=== PATIENT | female | born 1985 | race Caucasian/White ===

== ENCOUNTER 2020-10-31 10:34 | Inpatient (IN) | payer OTHER ==
[~2020-10-31] VITALS: Ht 160 cm; Wt 60.5 kg
[2020-10-31] MEDS ORDERED: LORAZEPAM 1MG TABLET PO ONE (11:00)
[2020-10-31] MEDS ORDERED: LEVETIRACETAM 1000MG PREMIX 100 ML IV ONE (11:00)
[2020-10-31 11:17] LABS: HEMATOCRIT. 34.1 % (36.0-48.0); HEMOGLOBIN. 11.3 g/dL (12.0-16.0); MEAN CORPUSCULAR HEMOGLOBIN 26.6 pg (28.0-32.0); MEAN PLATELET VOLUME 8.3 fl (7.4-10.4); PLATELET 252 x1000/uL (130-400); RED BLOOD CELL COUNT 4.26 mill/uL (4.2-5.4); RED CELL DISTRIBUTION WIDTH 13.5 % (11.6-14.6)
[2020-10-31 11:19] LABS: CHLORIDE 99 mEq/L (98-107)
[2020-10-31 11:22] LABS: ETHANOL BLOOD < 10 mg/dL
[2020-10-31 12:32] LABS: CLARITY URINE CLEAR (CLEAR); COLOR URINE YELLOW (YELLOW); KETONES URINE NEGATIVE (NEGATIVE); LEUKOCYTE ESTERASE URINE 1+ (NEGATIVE); NITRITE URINE NEGATIVE (NEGATIVE); OCCULT BLOOD URINE TRACE (NEGATIVE); PROTEIN URINE TRACE (NEGATIVE); SPECIFIC GRAVITY URINE 1.007 (1.005-1.030); UROBILINOGEN URINE 0.2 E.U./dL (0.2-1.0)
[2020-10-31 12:36] LABS: PLATELET ESTIMATE NORMAL
[2020-10-31 12:52] LABS: *AMPHETAMINES SCREEN URINE NEGATIVE (NEGATIVE); *BARBITURATES SCREEN URINE NEGATIVE (NEGATIVE)
[2020-10-31 12:53] LABS: *BENZODIAZEPINES SCREEN URINE NEGATIVE (NEGATIVE); *COCAINE SCREEN URINE NEGATIVE (NEGATIVE); CANNABINOID URINE SCREEN NEGATIVE (NEGATIVE); METHADONE URINE SCREEN NEGATIVE (NEGATIVE); OPIATES URINE SCREEN NEGATIVE (NEGATIVE); PHENCYCLIDINE URINE SCREEN NEGATIVE (NEGATIVE)
[2020-10-31] MEDS ORDERED: KEPP500 MT (12:59)
[2020-10-31] MEDS ORDERED: MAGNESIUM/ALUMINUM HYDROXIDE/SIMETHICONE 30ML UDC PO PRN (20:45)
[2020-10-31] MEDS ORDERED: ACETAMINOPHEN 650MG SUPP PR PRN ×2 (20:45)
[2020-10-31] MEDS ORDERED: ONDANSETRON HCL 4MG/2ML INJ IV PRN (20:45)
[2020-10-31] MEDS ORDERED: NA PHOS,M-B/NA PHOS,DI-BA ENEMA 118ML PR PRN (20:45)
[2020-10-31] MEDS ORDERED: ACETAMINOPHEN 325MG TABLET PO PRN ×2 (20:45)
[2020-10-31] MEDS ORDERED: CLONIDINE 0.1MG TABLET PO PRN (20:45)
[2020-10-31] MEDS ORDERED: LEVETIRACETAM 500 MG in SODIUM CHLORIDE 0.9% 100 ML IV SCH (20:45)
[2020-10-31] MEDS ORDERED: ACETAMINOPHEN 650MG/20.3ML UDC GT PRN ×2 (20:45)
[2020-10-31] MEDS ORDERED: DIPHENHYDRAMINE 50MG/ML VIAL IV PRN (20:45)
[2020-10-31] MEDS ORDERED: LEVETIRACETAM 500MG PREMIX 100 ML IV SCH (21:00)
[2020-10-31 22:00] VITALS: BP 129/76
[2020-10-31] MEDS: LEVETIRACETAM 500MG PREMIX 100 ML IV SCH (22:50)
[2020-10-31] MEDS ORDERED: LORAZEPAM 2MG/ML CPJ IV PRN (23:30)
[2020-11-01 00:20] VITALS: BP 124/69
[2020-11-01 04:00] VITALS: BP 99/60
[2020-11-01 05:34] LABS: BASOPHILS % 0.2 % (0.0-2.0); EOSINOPHILS % 0.1 % (0.0-5.0); HEMATOCRIT. 36.2 % (36.0-48.0); LYMPHOCYTES % 10.8 % (20.0-50.0); MEAN CORPUSCULAR HEMOGLOBIN 26.8 pg (28.0-32.0); MEAN CORPUSCULAR VOLUME 80.9 fL (81.0-99.0); MEAN PLATELET VOLUME 8.3 fl (7.4-10.4); MONOCYTES % 8.7 % (2.0-8.0); NEUTROPHILS % 80.2 % (40.0-76.0); PLATELET 315 x1000/uL (130-400); RED BLOOD CELL COUNT 4.48 mill/uL (4.2-5.4); RED CELL DISTRIBUTION WIDTH 13.7 % (11.6-14.6)
[2020-11-01 06:16] LABS: CHLORIDE 99 mEq/L (98-107)
[2020-11-01 06:25] LABS: LDL CHOLESTEROL 59 mg/dL (5-100)
[2020-11-01 06:26] LABS: HDL CHOLESTEROL 51 mg/dL (40-59)
[2020-11-01 08:00] VITALS: BP 99/69
[2020-11-01] MEDS: LEVETIRACETAM 500MG PREMIX 100 ML IV SCH (08:37)
[2020-11-01 12:00] VITALS: BP 111/69
[2020-11-01 15:55] VITALS: BP 114/77
[2020-11-01 19:38] VITALS: BP 125/62
== END 2020-11-01 19:55 | disposition home or self-care (01) | DRG 776 ==
LOC: ER 10:58 → CANBEDREQ 15:18 → 6WST 15:47 → ENRESERV 19:23
PROVIDERS: ADMIT Family Medicine; ATTEND Family Medicine
DX: O99.355 Diseases of the nervous system complicating the puerperium (principal); G40.802 Other epilepsy, not intractable, without status epilepticus; E87.1 Hypo-osmolality and hyponatremia; G93.89 Other specified disorders of brain; R73.9 Hyperglycemia, unspecified; O99.285 Endocrine, nutritional and metabolic diseases complicating the puerperium; O90.89 Other complications of the puerperium, not elsewhere classified; Z98.2 Presence of cerebrospinal fluid drainage device
CPT/HCPCS: 36415; 80053; 80061; 80305; 80320; 81003; 83930; 83935; 85025; 99291; J1953; G0480